=== PATIENT | male | born 1955 | race Caucasian/White ===

== ENCOUNTER → 2017-08-18 | Day surgery (SDC) | payer BC ==
[2017-08-04 15:48] VITALS: Ht 180.3 cm; Wt 111.4 kg
[~2017-08-18] VITALS: Ht 180.3 cm; Wt 111.4 kg
[~2017-08-18] MED LIST: ASPI1TAB83 PO; CHOL1000 PO; DULO60CA44 PO; GABA800T2 PO; INSDGI SC; LIDOCAINE HCL 2% 2 ML VIAL (20MG/ML) ONE; LISI10TA PO; METF500T5 PO; MIDAZOLAM HCL 1 MG/ML 2ML VIAL ONE; MULTTAB58 PO; NVLGIPEN SC; OXYC-57 PO; PROPOFOL IV EMULSION 10 MG/ML 20 ML VIAL IV ONE; SILD50TA PO; SIMV40TA4 PO
[2017-08-18 12:27] VITALS: TEMP 36.9
--- NOTE | 2017-08-18 13:13 | Endo History and Physical ---
History & Physical Date of Service: Aug 18, 2017. Chief Complaint: SCREENING Referring Physician: DR. RADER History of Present Illness initial screen Past Medical History Diabetes, Asthma, High Cholesterol, Hypertension, Depression Past Surgical History Hx Cardiac Surgery: No Hx Internal Defibrillator: No Hx Pacemaker: No Hx Abdominal Surgery: No Hx of Implantable Prosthesis: No Hx Post-Op Nausea and Vomiting: No Hx Cancer Surgery: No Hx Thoracic Surgery: No Hx Orthopedic: No Hx Urinary Tract Surgery: Yes (TURP) Family History None Social History Smoking Status: Never Smoker Hx Substance Use: No Hx Alcohol Use: Yes (VERY RARELY) Allergies Coded Allergies: No Known Allergies (Verified , 08/18/17) Current Medications Reported Home Medications Medications Dose Route/Sig Max Daily Dose Days Date Category Dose Instructions Vitamin D3 (Cholecalciferol) 1,000 Unit Tab 3 Tab PO DAILY 90 08/04/17 Reported Novolog Flexpen (Insulin Aspart) 100 Units/Ml Inj 1 Dose SC WITH MEALS 08/04/17 Reported 20 UNITS IN AM 20 UNITS IN LUNCH 27 UNITS AT SUPPER Lantus (Insulin Glargine) 100 Unit/Ml Inj 66 SC QPM 08/04/17 Reported Viagra (Sildenafil Citrate) 50 Mg Tab 50 Mg PO PRN 08/05/15 Reported Percocet 5MG/325MG (Oxycodone/Acetaminophen) Tab 1 Tablet PO Q6H PRN 08/05/15 Reported PAIN Aspirin 81 Mg Tab 1 Tab PO QAM 90 08/02/15 Reported Multivitamin (Multiple Vitamin) 1 Tab Tab 1 Tab PO QPM 08/02/15 Reported Prinivil (Lisinopril) 10 Mg Tab 10 Mg PO QPM 08/02/15 Reported Zocor (Simvastatin) 40 Mg Tab 40 Mg PO QPM 08/02/15 Reported Cymbalta (Duloxetine Hcl) 60 Mg Cap 60 Mg PO QAM 08/02/15 Reported Glucophage Er (Metformin HCl) 500 Mg Tab 1,000 Mg PO BID 08/02/15 Reported Neurontin (Gabapentin) 800 Mg Tab 1,600 Mg PO TID 12/13/11 Reported Vital Signs Weight (Kilograms): 111.36 Height (Feet): 5 Height (Inches): 11 Date Time Temp Pulse Resp B/P (MAP) Pulse Ox O2 Delivery O2 Flow Rate FiO2 08/18/17 12:27 36.9 93 20 194/96 (128) 95 Room Air Physical Exam General Appearance: WD/WN, no apparent distress Respiratory/Chest: Auscultation: breath sounds normal Cardiovascular: Heart Auscultation: RRR Abdomen: Bowel Sounds: normal Inspection & Palpation: soft, non-distended, no tenderness, guarding & rebound Assessment and Plan initial screening colonoscopy iona
--- NOTE | 2017-08-18 13:53 | Discharge Instructions ---
Endoscopy Patient Instructions Date / Procedure(s) Performed Aug 18, 2017. Colonoscopy Allergy Information Coded Allergies: No Known Allergies (Verified , 08/18/17) Discharge Date / Findings Aug 18, 2017. colon polyp removed/clipped Medication Instructions Stopped Medication(s): ASPIRIN 08/16/17 Restart Stopped Medication(s): Reported Home Medications Medications Dose Route/Sig Max Daily Dose Days Date Category Dose Instructions Vitamin D3 (Cholecalciferol) 1,000 Unit Tab 3 Tab PO DAILY 90 08/04/17 Reported Novolog Flexpen (Insulin Aspart) 100 Units/Ml Inj 1 Dose SC WITH MEALS 08/04/17 Reported 20 UNITS IN AM 20 UNITS IN LUNCH 27 UNITS AT SUPPER Lantus (Insulin Glargine) 100 Unit/Ml Inj 66 SC QPM 08/04/17 Reported Viagra (Sildenafil Citrate) 50 Mg Tab 50 Mg PO PRN 08/05/15 Reported Percocet 5MG/325MG (Oxycodone/Acetaminophen) Tab 1 Tablet PO Q6H PRN 08/05/15 Reported PAIN Aspirin 81 Mg Tab 1 Tab PO QAM 90 08/02/15 Reported Multivitamin (Multiple Vitamin) 1 Tab Tab 1 Tab PO QPM 08/02/15 Reported Prinivil (Lisinopril) 10 Mg Tab 10 Mg PO QPM 08/02/15 Reported Zocor (Simvastatin) 40 Mg Tab 40 Mg PO QPM 08/02/15 Reported Cymbalta (Duloxetine Hcl) 60 Mg Cap 60 Mg PO QAM 08/02/15 Reported Glucophage Er (Metformin HCl) 500 Mg Tab 1,000 Mg PO BID 08/02/15 Reported Neurontin (Gabapentin) 800 Mg Tab 1,600 Mg PO TID 12/13/11 Reported Reported Home Medications Medications Dose Route/Sig Max Daily Dose Days Date Category Dose Instructions Vitamin D3 (Cholecalciferol) 1,000 Unit Tab 3 Tab PO DAILY 90 08/04/17 Reported Novolog Flexpen (Insulin Aspart) 100 Units/Ml Inj 1 Dose SC WITH MEALS 08/04/17 Reported 20 UNITS IN AM 20 UNITS IN LUNCH 27 UNITS AT SUPPER Lantus (Insulin Glargine) 100 Unit/Ml Inj 66 SC QPM 08/04/17 Reported Viagra (Sildenafil Citrate) 50 Mg Tab 50 Mg PO PRN 08/05/15 Reported Percocet 5MG/325MG (Oxycodone/Acetaminophen) Tab 1 Tablet PO Q6H PRN 08/05/15 Reported PAIN Aspirin 81 Mg Tab 1 Tab PO QAM 90 08/02/15 Reported Multivitamin (Multiple Vitamin) 1 Tab Tab 1 Tab PO QPM 08/02/15 Reported Prinivil (Lisinopril) 10 Mg Tab 10 Mg PO QPM 08/02/15 Reported Zocor (Simvastatin) 40 Mg Tab 40 Mg PO QPM 08/02/15 Reported Cymbalta (Duloxetine Hcl) 60 Mg Cap 60 Mg PO QAM 08/02/15 Reported Glucophage Er (Metformin HCl) 500 Mg Tab 1,000 Mg PO BID 08/02/15 Reported Neurontin (Gabapentin) 800 Mg Tab 1,600 Mg PO TID 12/13/11 Reported Provider Instructions Activity Restrictions - No exercising or heavy lifting for 24 hours. - Do not drink alcohol the day of the procedure. - Do not drive a car or operate machinery until the day after the procedure. - Do not make any important decisions or sign important papers in 24 hours after the procedure. Following Day: - Return to full activity which may include returning to work/school. Diet Start your diet with liquids and light foods (jello, soup, juice, toast). Then eat your usual diet if not nauseated. Treatment For Common After Affects For mild abdominal pain, bloating, or excessive gas: - Rest - Eat lightly - Lie on right side Follow-Up Information Follow-up with DR. RADER as scheduled Anesthesia Information What You Should Know You have had a procedure that required some medicine to reduce anxiety and discomfort. This treatment is called moderate sedation. After receiving the treatment, you may be sleepy, but you will be able to breathe on your own. The effects of the treatment may last for several hours. Follow these instructions along with Activity/Diet recommendations noted above: * Do NOT do anything where dizziness or clumsiness would be dangerous. * Rest quietly at home today, then you can be up and about tomorrow. * Have a responsible person stay with you the rest of today. * You may have had an I.V. today. If so, you may take the dressing off later today. Recommendations Call your doctor if: * Trouble breathing * Continuous vomiting for more than 24 hours * Temperature above 101 degrees * Severe abdominal pain or bloating * Pain not relieved by pain medicine ordered * There is increased drainage or redness from any incision * A large amount of rectal bleeding greater than 2-3 tablespoons. (If you had a polyp/s removed or have hemorrhoids, a small amount of blood - from the rectum is to be expected.) * You have any unanswered questions or concerns. IN THE EVENT OF A SERIOUS EMERGENCY, GO TO THE NEAREST EMERGENCY ROOM Your discharge instructions were prepared by provider Maco Sandoval. Patient Instructions Signature Page Melecio Aragon Patient (or Guardian) Signature/Date: I have read and understand the instructions given to me by my caregivers. Caregiver/RN/Doctor Signature/Date: The above-named patient and/or guardian has received patient instructions on this date. + Original Patient Signature Page (only) stays with chart. Please make copy for patient.
--- NOTE | 2017-08-18 14:02 | GI REPORT ---
Procedure Date: 08/18/2017 1:18 PM Procedure: Colonoscopy Indications: Screening for colorectal malignant neoplasm, This is the patient's first colonoscopy Medicines: Propofol per Anesthesia Complications: No immediate complications. Estimated blood loss: None. Estimated Blood Loss: Estimated blood loss: none. Procedure: Pre-Anesthesia Assessment: - Prior to the procedure, a History and Physical was performed, and patient medications and allergies were reviewed. The patient's tolerance of previous anesthesia was also reviewed. The risks and benefits of the procedure and the sedation options and risks were discussed with the patient. All questions were answered, and informed consent was obtained. Prior Anticoagulants: The patient has taken no previous anticoagulant or antiplatelet agents. ASA Grade Assessment: III - A patient with severe systemic disease. After reviewing the risks and benefits, the patient was deemed in satisfactory condition to undergo the procedure. After I obtained informed consent, the scope was passed under direct vision. Throughout the procedure, the patient's blood pressure, pulse, and oxygen saturations were monitored continuously. The scope was introduced through the anus and advanced to the terminal ileum, with identification of the appendiceal orifice and IC valve. The colonoscopy was unusually difficult due to unsatisfactory bowel prep and a tortuous colon. The patient tolerated the procedure well. The quality of the bowel preparation was inadequate and 30 percent obscured. Findings: The perianal and digital rectal examinations were normal. Pertinent negatives include normal sphincter tone, no palpable rectal lesions and no anal lesion or abnormality was detected. A 12 mm polyp was found at 100 cm proximal to the anus. The polyp was sessile. The polyp was removed with a hot snare. Resection and retrieval were complete. To prevent bleeding after the polypectomy, two hemostatic clips were successfully placed (MR conditional). There was no bleeding during, and at the end, of the procedure. The exam was otherwise without abnormality. The terminal ileum appeared normal. A moderate amount of liquid stool was found in the entire colon, interfering with visualization. Lavage of the area was performed using a moderate amount of sterile water, resulting in incomplete clearance with fair visualization. The retroflexed view of the distal rectum and anal verge was normal and showed no anal or rectal abnormalities. Impression: - Preparation of the colon was inadequate. - One 12 mm polyp at 100 cm proximal to the anus, removed with a hot snare. Resected and retrieved. Clips (MR conditional) were placed. - The examination was otherwise normal. - The examined portion of the ileum was normal. - Stool in the entire examined colon. - The distal rectum and anal verge are normal on retroflexion view. Recommendation: - Discharge patient to home (ambulatory). - Resume regular diet. - Continue present medications. - Await pathology results. - Repeat colonoscopy for surveillance based on pathology results. - Will need two day prep for all future colon exams MD Maco Miller MD 08/18/2017 2:01:49 PM This report has been signed electronically. Note Initiated On: 08/18/2017 1:18 PM I attest to the content of the Intraoperative Record and orders documented therein, exceptions below
[2017-08-18 14:24] VITALS: BP 146/97; PULSE 77; O2SAT 96
--- NOTE | 2017-08-18 14:29 | Anesthesiology Progress Note ---
Anesthesia Post Op Note Date & Time Aug 18, 2017 at 14:28 Vital Signs Pain Intensity: 0 Vital Signs Past 12 Hours Date Time Temp Pulse Resp B/P (MAP) Pulse Ox O2 Delivery O2 Flow Rate FiO2 08/18/17 14:24 77 16 146/97 (113) 96 Room Air 08/18/17 14:09 79 16 143/94 (110) 95 Room Air 08/18/17 13:54 90 12 152/97 (115) 96 Room Air 08/18/17 12:27 36.9 93 20 194/96 (128) 95 Room Air Notes Mental Status: alert / awake / arousable, participated in evaluation Pt Amnestic to Procedure: Yes Nausea / Vomiting: adequately controlled Pain: adequately controlled Airway Patency, RR, SpO2: stable & adequate BP & HR: stable & adequate Hydration State: stable & adequate Anesthetic Complications: no major complications apparent
== END | disposition home or self-care (01) ==
LOC: C.GI 12:04
PROVIDERS: ATTEND Internal Medicine Gastroenterology
DX: Z12.11 Encounter for screening for malignant neoplasm of colon (principal); K62.0 Anal polyp; J45.909 Unspecified asthma, uncomplicated; E11.9 Type 2 diabetes mellitus without complications; I10 Essential (primary) hypertension; E78.00 Pure hypercholesterolemia, unspecified; F32.9 Major depressive disorder, single episode, unspecified; Z79.4 Long term (current) use of insulin; Z79.82 Long term (current) use of aspirin; E66.9 Obesity, unspecified; Z68.34 Body mass index [BMI] 34.0-34.9, adult

== ENCOUNTER → 2017-12-12 | Outpatient (CLI) | payer BC, OTHER ==
[~2017-12-12] MED LIST changes: -LIDOCAINE HCL 2% 2 ML VIAL (20MG/ML) ONE; -MIDAZOLAM HCL 1 MG/ML 2ML VIAL ONE; -PROPOFOL IV EMULSION 10 MG/ML 20 ML VIAL IV ONE
--- NOTE | 2017-12-12 16:29 | DIAGNOSTIC IMAGING REPORT ---
CT SCAN OF THE TEMPORAL BONES WITHOUT IV CONTRAST CLINICAL HISTORY: Otorrhea from the left ear. Hearing loss in the left ear. COMPARISON STUDY: No priors. TECHNIQUE: High-resolution CT scan of the temporal bones is performed. Images are reviewed in the axial, sagittal, and coronal planes. IV contrast was not administered for this examination. A dose lowering technique was utilized adhering to the principles of ALARA. CT DOSE: 720.19 mGy.cm FINDINGS: The skeletal structures appear osteopenic. There is no evidence of temporal bone fracture. There is a large left mastoid effusion, with opacification of the air cells around the semicircular canals. The right mastoid air cells are clear. The middle ear structures are normal bilaterally. The scutum is sharp bilaterally. The superior semicircular canal on the left appears dehiscent. There is no convincing evidence of dehiscence of the tegmen tympani. The ossicles are normal as visualized. No cholesteatoma is identified. Trace fluid is identified within the left middle ear canal. Trace mucosal thickening is seen in the left maxillary antrum. The remaining paranasal sinuses appear clear. The bony orbits are intact. Orbital contents are within normal limits. The visualized calvarium is preserved. The brain parenchyma is normal as visualized. The visualized portions of the parotid glands are normal. IMPRESSION: 1. 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 2. 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 3. There is no clear evidence of dehiscence of the tegmen tympani. 4. Trace fluid is present within the left middle ear. 5. There is no evidence of cholesteatoma. Dictated: 12/12/2017 3:55 PM Transcribed: 12/12/2017 4:28 PM [facility] Electronically signed by: Thong Ambriz M.D. 12/13/2017 11:13 AM Dictated Date/Time: 12/12/2017 3:55 PM
== END | disposition home or self-care (01) ==
LOC: C.CTS 15:21
DX: H74.8X2 Other specified disorders of left middle ear and mastoid (principal); H92.12 Otorrhea, left ear